=== PATIENT | female | born 1990 | race Caucasian/White ===

== ENCOUNTER 2021-10-06 14:08 | Emergency (ER) | payer BC ==
--- NOTE | 2021-10-06 15:16 | EDM.PDOC ---
"<José Miguel Baez - Last Filed: 10/06/21 18:39> ED HPI GENERAL MEDICAL PROBLEM - General Chief Complaint: Gastrointestinal Problem Stated Complaint: PAIN LOWER RIGHT SIDE Time Seen by Provider: 10/06/21 15:16 - History of Present Illness INITIAL COMMENTS - FREE TEXT/NARRATIVE: Patient is a 31 yo female with no significant past medical history who presents to the ED for abdominal pain. Pain is located in the right upper quadrant. Pain started at approximately 1330 10/06/2021. Patient notes she ate a piece of jerky and about 30 minutes later she had intense pain in her right upper quadrant. She describes the pain as sharp/stabbing and rated a 10/10 at the time. Currently her pain is sharp and rated 5/10. Standing up and movement makes the pain worse. Nothing makes the pain better. She is not taking anything for the pain. Denies fever, chills, cough, shortness of breath, chest pain, palpitations, nausea, emesis, diarrhea, , melena, hematochezia, dysuria, hematuria, and sick contacts. - Related Data Allergies Allergy/AdvReac Type Severity Reaction Status Date / Time amoxicillin Allergy Rash Verified 10/06/21 15:13 Home Meds: Home Meds . [No Known Home Meds] 10/06/21 [History] ED ROS GENERAL - Review of Systems Review Of Systems: See Below Constitutional: Reports: No Symptoms HEENT: Reports: No Symptoms Respiratory: Reports: No Symptoms Cardiovascular: Reports: No Symptoms Endocrine: Reports: No Symptoms GI/Abdominal: Reports: Abdominal Pain, Flatus. Denies: Black Stool, Bloody Stool, Constipation, Diarrhea, Hematochezia, Melena : Reports: No Symptoms Musculoskeletal: Reports: No Symptoms Skin: Reports: No Symptoms Neurological: Reports: No Symptoms Psychiatric: Reports: No Symptoms Hematologic/Lymphatic: Reports: No Symptoms Immunologic: Reports: No Symptoms ED EXAM, GI/ABD - Physical Exam Exam: See Below Exam Limited By: No Limitations General Appearance: Alert, WD/WN, No Apparent Distress Ears: Normal External Exam Nose: Normal Inspection Throat/Mouth: Normal Inspection Head: Atraumatic, Normocephalic Neck: Normal Inspection, Supple, Non-Tender, Full Range of Motion Respiratory/Chest: No Respiratory Distress, Lungs Clear, Normal Breath Sounds, No Accessory Muscle Use, Chest Non-Tender Cardiovascular: Normal Peripheral Pulses, Regular Rate, Rhythm, No Edema, No Gallop, No JVD, No Murmur, No Rub GI/Abdominal Exam: Normal Bowel Sounds, Soft, Non-Tender, No Organomegaly, No Distention, No Abnormal Bruit, No Mass, Pelvis Stable. No: Distended, Guarding, Rigid, Rebound, Tender Extremities: Normal Inspection, Normal Range of Motion Neurological: Alert, Oriented, Normal Cognition Psychiatric: Normal Affect, Normal Mood Skin Exam: Warm, Dry, Intact, Normal Color, No Rash Lymphatic: No Adenopathy Course - Re-Assessments/Exams Free Text/Narrative Re-Assessment/Exam: Reevaluated patient, her abdominal pain is now 2/10. Her labs were all WNL and RUQ ultrasound was normal. Patient feels comfortable discharging to home. 10/06/21 18:39 Departure - Departure Time of Disposition: 18:42 Disposition: Home, Self-Care 01 Condition: Good Clinical Impression: Abdominal pain Qualifiers: Abdominal location: right upper quadrant Qualified Code(s): R10.11 - Right upper quadrant pain - Discharge Information *PRESCRIPTION DRUG MONITORING PROGRAM REVIEWED*: Not Applicable *COPY OF PRESCRIPTION DRUG MONITORING REPORT IN PATIENT SAUL: Not Applicable Instructions: Abdominal Pain, Adult, [id number] Forms: ED Department Discharge - Assessment/Plan Plan: Patient is a 31-year-old female being seen today for right upper quadrant pain. Differentials include but are not limited to cholecystitis, cholelithiasis, constipation, , ectopic , ovarian cyst, gastroenteritis, pancreatitis, deformity bowel disease. Labs include cbc, cmp, ua, urine test, lipase, and amylase. We will give her a liter of NS and Dilaudid for pain. Patients labs and ultrasound were all WNL. Pain has significantly improved. Patient feels comfortable discharging to home. Return criteria discussed with the patient. Patient is medically stable and cleared for discharge. <Oziel Akins - Last Filed: 10/06/21 19:04> ED HPI GENERAL MEDICAL PROBLEM - General Source of Information: Reports: Patient, RN, RN Notes Reviewed History Limitations: Reports: No Limitations RUQ Pain Score (Numeric/FACES): 10 Course - Vital Signs Last Recorded V/S: Last Vital Signs Temp 99.5 F 10/06/21 15:06 Pulse 97 10/06/21 15:06 Resp 20 10/06/21 15:06 BP 133/76 10/06/21 15:06 Pulse Ox 97 10/06/21 15:06 - Orders/Labs/Meds Orders: Active Orders 24 hr Category Date Time Status Peripheral IV Care [RC] . DIRECTED Care 10/06/21 15:17 Active Sodium Chloride 0.9% [Saline Flush] Med 10/06/21 15:17 Active 10 ml FLUSH ASDIRECTED PRN Peripheral IV Insertion Adult [OM.PC] Stat Oth 10/06/21 15:16 Ordered Medication Orders Sodium Chloride (Sodium Chloride 0.9% 10 Ml Syringe) 10 ml FLUSH ASDIRECTED PRN PRN Reason: Keep Vein Open Labs: Laboratory Tests 10/06/21 10/06/21 10/06/21 Range/Units 15:48 15:48 15:57 WBC 8.5 (5.0-10.0) 10^3/uL RBC 4.40 (4.2-5.4) 10^6/uL Hgb 13.4 (12.0-16.0) g/dL Hct 41.6 (37.0-47.0) % MCV 94.5 (80-100) fL MCH 30.5 (27.0-34.0) pg MCHC 32.2 L (33.0-35.0) g/dL Plt Count 208 (150-450) 10^3/uL Neut % (Auto) 73.7 (42.2-75.2) % Lymph % (Auto) 18.9 L (20.5-50.1) % [place] % (Auto) 7.1 (2-8) % Eos % (Auto) 0.1 L (1.0-3.0) % Baso % (Auto) 0.2 (0.0-1.0) % Sodium 137 (136-145) mmol/L Potassium 3.8 (3.5-5.1) mmol/L Chloride 99 (98-107) mmol/L Carbon Dioxide 24 (21-32) mmol/L Anion Gap 17.8 H (7-13) mEq/L BUN 21 H (7-18) mg/dL Creatinine 0.92 (0.55-1.02) mg/dL Est Cr Clr Drug Dosing 73.31 mL/min Estimated GFR (MDRD) > 60 BUN/Creatinine Ratio 22.8 (No establ ref range) Glucose 99 (70-99) mg/dL Calcium 8.6 (8.5-10.1) mg/dL Total Bilirubin 0.3 (0.2-1.0) mg/dL AST 11 L (15-37) U/L ALT 18 (14-59) U/L Alkaline Phosphatase 62 (46-116) U/L C-Reactive Protein < 0.2 (0.0-0.9) mg/dL Total Protein 7.0 (6.4-8.2) g/dL Albumin 4.1 (3.4-5.0) g/dL Globulin 2.9 Albumin/Globulin Ratio 1.4 Amylase 52 (25-115) U/L Urine Color (YELLOW) Urine Appearance (CLEAR) Urine pH (5.0-9.0) Ur Specific [place] (1.005-1.030) Urine Protein (NEGATIVE) Urine Glucose (UA) (NEGATIVE) Urine Ketones (NEGATIVE) Urine Occult Blood (NEGATIVE) Urine Nitrite (NEGATIVE) Urine Bilirubin (NEGATIVE) Urine Urobilinogen (0.2-1.0) mg/dL Ur Leukocyte Esterase (NEGATIVE) Urine HCG, Qual Negative 10/06/21 Range/Units 15:57 WBC (5.0-10.0) 10^3/uL RBC (4.2-5.4) 10^6/uL Hgb (12.0-16.0) g/dL Hct (37.0-47.0) % MCV (80-100) fL MCH (27.0-34.0) pg MCHC (33.0-35.0) g/dL Plt Count (150-450) 10^3/uL Neut % (Auto) (42.2-75.2) % Lymph % (Auto) (20.5-50.1) % [place] % (Auto) (2-8) % Eos % (Auto) (1.0-3.0) % Baso % (Auto) (0.0-1.0) % Sodium (136-145) mmol/L Potassium (3.5-5.1) mmol/L Chloride (98-107) mmol/L Carbon Dioxide (21-32) mmol/L Anion Gap (7-13) mEq/L BUN (7-18) mg/dL Creatinine (0.55-1.02) mg/dL Est Cr Clr Drug Dosing mL/min Estimated GFR (MDRD) BUN/Creatinine Ratio (No establ ref range) Glucose (70-99) mg/dL Calcium (8.5-10.1) mg/dL Total Bilirubin (0.2-1.0) mg/dL AST (15-37) U/L ALT (14-59) U/L Alkaline Phosphatase (46-116) U/L C-Reactive Protein (0.0-0.9) mg/dL Total Protein (6.4-8.2) g/dL Albumin (3.4-5.0) g/dL Globulin Albumin/Globulin Ratio Amylase (25-115) U/L Urine Color Yellow (YELLOW) Urine Appearance Clear (CLEAR) Urine pH 6.0 (5.0-9.0) Ur Specific [place] 1.015 (1.005-1.030) Urine Protein Negative (NEGATIVE) Urine Glucose (UA) Negative (NEGATIVE) Urine Ketones 40 H (NEGATIVE) Urine Occult Blood Negative (NEGATIVE) Urine Nitrite Negative (NEGATIVE) Urine Bilirubin Negative (NEGATIVE) Urine Urobilinogen 0.2 (0.2-1.0) mg/dL Ur Leukocyte Esterase Negative (NEGATIVE) Urine HCG, Qual Meds: Medications Generic Name Dose Route Start Last Admin Trade Name Freq PRN Reason Stop Dose Admin Sodium Chloride 10 ml 10/06/21 15:17 Sodium Chloride 0.9% 10 Ml Syringe FLUSH ASDIRECTED PRN Keep Vein Open Discontinued Medications Generic Name Dose Route Start Last Admin Trade Name Freq PRN Reason Stop Dose Admin Hydromorphone HCl 1 mg 10/06/21 15:17 10/06/21 16:14 Hydromorphone 1 Mg/Ml Syringe IVPUSH 10/06/21 15:18 1 mg ONETIME ONE Administration Sodium Chloride 1,000 mls @ 999 mls/hr 10/06/21 15:18 10/06/21 16:13 Normal Saline IV 10/06/21 16:18 999 mls/hr .BOLUS ONE Administration Ondansetron HCl 4 mg 10/06/21 15:17 10/06/21 16:14 Ondansetron 4 Mg/2 Ml Sdv IV 10/06/21 15:18 4 mg ONETIME ONE Administration - Radiology Interpretation Free Text/Narrative:: [facility] [place] [facility] Final Radiology Report Call: [phone] assistance Online chat: [email or web address] Name: RAY AVILA Age: 31Years F Date: 10/06/2021 SSN: -- : [id number] Study: US ABDOMEN LTD Requesting Physician: José Miguel Baez Images: 45 Addl Studies: Provided Clinical History: RUQ pain Contrast: Without Contrast Medium: Contrast Amount: Contrast Method: Page 1 of 2 PROCEDURE INFORMATION: Exam: US Abdomen, Limited; Right Upper Quadrant Exam date and time: 10/06/2021 4:47 PM Age: 31 years old Clinical indication: Abdominal pain; Localized; Right upper quadrant (ruq); Additional info: Ruq pain TECHNIQUE: Imaging protocol: US abdomen. Real time ultrasound with image documentation. Limited exam focused on the right upper quadrant. COMPARISON: No relevant prior studies available. FINDINGS: Liver: The liver is normal. Gallbladder: The gallbladder is normal. Common bile duct: Common bile duct diameter is 3 mm. There is no intrahepatic bile duct dilation. Pancreas: There is a question of a hypoechoic nodule in the body of the pancreas measuring 7 mm. Trace free fluid in Canas's pouch. Right kidney: Not assessed. Intraperitoneal space: No free fluid. IMPRESSION: 1. Question minimal free fluid in the upper abdomen. 2. Possible small pancreatic nodule, this is not definitive finding. Consider a short-term term follow-up ultrasound in 4-6 weeks time versus contrast enhanced MR. Thank you for allowing us to participate in the care of your patient. RAY AVILA | Final Radiology Report CONFIDENTIALITY STATEMENT This report is intended only for use by the referring physician, and only in accordance with law. If you received this in error, call [phone]. Page 2 of 2 Dictated and Authenticated by: Rojelio Addison MD 10/06/2021 5:58 PM Central Time ([place] & [place]) - Re-Assessments/Exams Free Text/Narrative Re-Assessment/Exam: 10/06/21 I saw and evaluated the patient. Discussed with resident and agree with residents findings and plan as documented in the residents note. Sepsis Event Note (ED) - Evaluation Sepsis Screening Result: No Definite Risk - Focused Exam Vital Signs: Vital Signs Temp Pulse Resp BP Pulse Ox 10/06/21 15:06 99.5 F 97 20 133/76 97 - My Orders Last 24 Hours: My Active Orders 10/06/21 15:16 Peripheral IV Insertion Adult [OM.PC] Stat 10/06/21 15:17 Peripheral IV Care [RC] . DIRECTED Sodium Chloride 0.9% [Saline Flush] 10 ml FLUSH ASDIRECTED PRN - Assessment/Plan Last 24 Hours: My Active Orders 10/06/21 15:16 Peripheral IV Insertion Adult [OM.PC] Stat 10/06/21 15:17 Peripheral IV Care [RC] . DIRECTED Sodium Chloride 0.9% [Saline Flush] 10 ml FLUSH ASDIRECTED PRN"
[2021-10-06] MEDS ORDERED: HYDROmorphone 1 MG/ML Syringe IVPUSH ONE (15:17)
[2021-10-06] MEDS ORDERED: Sodium Chloride 0.9% 10 ML Syringe FLUSH PRN (15:17)
[2021-10-06] MEDS ORDERED: Ondansetron 4 MG/2 ML SDV IV ONE (15:17)
[2021-10-06] MEDS ORDERED: Sodium Chloride 0.9% 1,000 ML IV ONE (15:18)
[2021-10-06 16:14] LABS: ANION GAP 17.8 mEq/L (7-13); CHLORIDE,CL 99 mmol/L (98-107); SODIUM,NA 137 mmol/L (136-145)
--- NOTE | 2021-10-06 17:58 | US ---
PROCEDURE INFORMATION: Exam: US Abdomen, Limited; Right Upper Quadrant Exam date and time: 10/06/2021 4:47 PM Age: 31 years old Clinical indication: Abdominal pain; Localized; Right upper quadrant (ruq); Additional info: Ruq pain TECHNIQUE: Imaging protocol: US abdomen. Real time ultrasound with image documentation. Limited exam focused on the right upper quadrant. COMPARISON: No relevant prior studies available. FINDINGS: Liver: The liver is normal. Gallbladder: The gallbladder is normal. Common bile duct: Common bile duct diameter is 3 mm. There is no intrahepatic bile duct dilation. Pancreas: There is a question of a hypoechoic nodule in the body of the pancreas measuring 7 mm. Trace free fluid in Canas's pouch. Right kidney: Not assessed. Intraperitoneal space: No free fluid. IMPRESSION: 1. Question minimal free fluid in the upper abdomen. 2. Possible small pancreatic nodule, this is not definitive finding. Consider a short-term term follow-up ultrasound in 4-6 weeks time versus contrast enhanced MR.
== END 2021-10-06 19:30 | disposition home or self-care (01) ==
LOC: DL.ED 14:08
DX: R10.11 Right upper quadrant pain (principal); Z88.0 Allergy status to penicillin
CPT/HCPCS: 36415; 76705; 80053; 81003; 81025; 82150; 85025; 86140; 96374; 96375; 99284; J1170; J2405; J7030